=== PATIENT | female | born 1950 | race Caucasian/White ===

== ENCOUNTER 2020-04-25 00:40 | Outpatient (CLI) | payer MEDICARE, MEDICAID, SELFPAY ==
--- NOTE | 2020-04-25 10:20 | DI.NM_ITS ---
APPROVED REPORT Exam: Pharmacologic Patient Location: Out-Patient Room/Bed: Stress Nurse: Nelly Melissa RN BMI: 39.05 Baseline Rhythm: Sinus Rhythm Comment: frequent monomorphic PVCs, flat/inverted T waves in leads III, aVF, V1, V3, V4, V5, V6 Indications: Intermittent, nonexertional substernal throbbing chest pressure of varying intensity. Medical History Medical History: DM II, HLD, Obesity, Anxiety/Depression, Smoker, Multinodular goiter, HTN, NSTEMI, C HF, Carotid artery stenosis, Carotid artery occlusion, Subclavian steal syndrome, Falls, Abnormal gai t, TIA, ASCVD. Cardiac Medications: Aspirin, Furosemide, Glipizide, Isosorbide mononitrate, Jardiance, Lisinopril, M etformin, Metoprolol succinate, Nicotine patch, Nitro SL, Pantoprazole, Clopidogrel, Potassium chlori de, Rosuvastatin, Albuterol sulfate inhaler, Incruse Ellipta inhaler. Allergies: Atorvastatin, Codeine, Fluarix, Gabapentin, Latex, Sulfa antibiotics Cardiac Risk Factors: HTN, Hyperlipidemia, Diabetes (non-insulin), FHX of CAD, Smoking (current), Ast hma, PVD, CVD Previous Cardiac Procedures: PCI with stents in 10/20/08 and 05/18/19 Pretest Chest Pain Characteristics: Non-exertional Chest pain Exercise History: Sedentary Physical Disabilities: Legs Lung Sounds: Clear to auscultation Heart Sounds: Irregular Stress Test Details Test: Exercise stress converted to pharmacologic stress due to failure to obtain a diagnostic stress test. Nuclear Acquisition: Rest Tc-99m/Stress Tc-99m 1 day Rest Isotope: Tc-99m Sestamibi. Dose: 10.9 Date: 04/25/2020 Injection Time: 1040 Stress Isotope: Tc-99m Sestamibi. Dose: 31.9 Date: 04/25/2020 Injection Time: 1150 HR Resting HR Supine: 78 bpm Max Heart Rate (APMHR): 151.500892 bpm Resting HR Standin bpm Target HR (85% APMHR): 128.905588 bpm Max HR Achieved: 118 bpm % of APMHR: 78.15 Recovery HR: 89 bpm HR response to stress: Normal HR response to stress BP Resting BP Supine: 118/82 mmHg Resting BP Standin/80 mmHg Max BP: 128/84 mmHg Recovery BP: 120/82 mmHg BP response to stress: Normal blood pressure response to stress. ECG Resting ECG: Sinus Rhythm Ectopy: Occasional monomorphic PVCs Comment: flat/inverted T waves in leads III, aVF, V1, V3, V4, V5, V6 Stress ECG: Sinus Tachycardia ST Change: no significant ST segment changes noted. Arrhythmia: occasional monomorphic PVCs, occasional PAC Recovery ECG: Sinus Rhythm Recovery ST Change: no significant ST segment changes noted. Recovery Arrhythmia: Occasional monomorphic PVCs, occasional PAC Clinical Reason for Termination: Leg fatigue Stress Symptoms: Leg Fatigue, Dyspnea Exercise duration: 1 min07 sec Highest Stage Reached: Stage 1: 1.7 mph at 10% grade. Exercise capacity: 2.73 METs Stress ECG Conclusion 1. This is a pharmacological stress test. 2. Patient no symptoms suggestive of ischemia 3. The EKG portion of this exam is nondiagnostic. Stress Test Summary STAGE Time (mins) Speed (mph) Grade (%) HR BP SYMPTOMS METS Supine 78 118/82 Standing 85 122/80 1 min post Lexiscan injection 103 128/84 SOB/Chest tightness 3 min post Lexiscan injection 94 120/88 All symptoms resolved by minute 3. 6 min post Lexiscan injection 89 120/82 MPI Conclusion The patient's ejection fraction was 33% with stress. There is diffuse hypokinesis of the left ventri john. There is a large partially reversible perfusion defect of the entire lateral wall extending to the ap ex. Specificity of the study may be decreased due to significant bowel uptake This represents an abnormal SPECT stress test by imaging. I discussed the findings with the nurse answering service at [facility] who was the [facility] provider. Radiologist Interpretation Radiologist Interpretation by: Zion Ho MD Interpretation Date/Time: 04/25/2020 16:19:16
[2020-04-25] MEDS: Regadenoson 0.4 MG/5 ML SYR IVP (12:13)
== END 2020-04-25 01:00 ==
PROVIDERS: Visit Provider Physician Assistant
DX: R07.89 Other chest pain (principal); I10 Essential (primary) hypertension; E78.5 Hyperlipidemia, unspecified; E11.51 Type 2 diabetes mellitus with diabetic peripheral angiopathy without gangrene; Z82.49 Family history of ischemic heart disease and other diseases of the circulatory system; F17.210 Nicotine dependence, cigarettes, uncomplicated; J45.909 Unspecified asthma, uncomplicated
CPT/HCPCS: 78452; 93016; 93018; 93017; J2785